=== PATIENT | female | born 1985 | race Caucasian/White ===

== ENCOUNTER 2017-12-06 19:17 | Emergency (ER) | payer MEDICAID ==
[~2017-12-06 19:17] MED LIST: ALBU8.5H8 IH; IRON PO; MEGE400O2 PO; VITC500T PO
== END 2017-12-06 20:01 | disposition left against medical advice (07) ==
LOC: ER 19:17
DX: R06.02 Shortness of breath (principal); Z53.21 Procedure and treatment not carried out due to patient leaving prior to being seen by health care provider

== ENCOUNTER 2020-07-16 15:11 | Emergency (ER) | payer MEDICAID ==
[~2020-07-16] VITALS: Ht 180.3 cm; Wt 142.3 kg
[~2020-07-16 15:11] MED LIST changes: -MEGE400O2 PO; +MEGE400O6 PO
[2020-07-16 15:48] LABS: BASOPHILS # (AUTO) 0.1 X10'3 (0-0.2); BASOPHILS % (AUTO) 0.6 % (0-1); EOSINOPHILS # (AUTO) 0.6 X10'3 (0-0.9); EOSINOPHILS % (AUTO) 4.8 % (0-6); HEMATOCRIT 37.5 % (35.0-45.0); HEMOGLOBIN 12.3 g/dl (12.0-16.0); LYMPHOCYTES % (AUTO) 22.3 % (21-51); MEAN CORPUSCULAR HEMOGLOBIN 27.9 PG (27.0-31.0); MEAN CORPUSCULAR HGB CONC 32.8 g/dL (33.0-36.5); MEAN CORPUSCULAR VOLUME 85.2 FL (78-98); MEAN PLATELET VOLUME 7.4 FL (7.4-10.4); MONOCYTES # (AUTO) 0.4 X10'3 (0-0.9); MONOCYTES % (AUTO) 3.2 % (2-12); NEUTROPHILS # (AUTO) 9.2 X10'3 (1.8-7.7); NEUTROPHILS % (AUTO) 69.1 % (42-75); PLATELET COUNT 397 X10'3 (140-440); RED CELL DISTRIBUTION WIDTH 15.1 % (11.5-14.5); WHITE BLOOD COUNT 13.3 X10'3 (4.5-11.0)
[2020-07-16 16:08] LABS: ALANINE AMINOTRANSFERASE 20 U/L (12-78); ALBUMIN 3.5 G/DL (3.4-5.0); ALBUMIN/GLOBULIN RATIO 0.9 (1.1-1.5); ALKALINE PHOSPHATASE 71 IU/L (46-116); ANION GAP 11 (8-16); ASPARTATE AMINO TRANSFERASE 10 U/L (10-37); BILIRUBIN,TOTAL 0.4 MG/DL (0.1-1.0); BLOOD UREA NITROGEN 9 MG/DL (7-18); BUN/CREATININE RATIO 11.8 (6.6-38.0); CALCIUM 9.2 MG/DL (8.5-10.1); CHLORIDE 106 MMOL/L (99-107); CREATININE 0.76 MG/DL (0.40-0.90); GLUCOSE 129 MG/DL (70-104); POTASSIUM 3.4 MMOL/L (3.5-5.1); SODIUM 140 MMOL/L (135-145); TOTAL PROTEIN 7.5 G/DL (6.4-8.2); eGFR 86 ML/MIN
[2020-07-16 17:26] VITALS: BP 116/67
== END 2020-07-16 17:34 | disposition home or self-care (01) ==
LOC: ER 15:11
DX: R07.89 Other chest pain (principal); J45.909 Unspecified asthma, uncomplicated; Z98.891 History of uterine scar from previous surgery; Z90.49 Acquired absence of other specified parts of digestive tract; Z79.899 Other long term (current) drug therapy
CPT/HCPCS: 36415; 71045; 80053; 83880; 84484; 85025; 93005; 99285

== ENCOUNTER 2023-06-29 21:22 | Emergency (ER) | payer BC, MEDICAID ==
[~2023-06-29] VITALS: Ht 175.3 cm; Wt 136.1 kg
[~2023-06-29 21:22] MED LIST changes: +ALBU8.5H17 IH; -ALBU8.5H8 IH; -MEGE400O6 PO; +MEGE400O7 PO
[2023-06-29 21:44] LABS: BASOPHILS # (AUTO) 0.1 X10'3 (0-0.2); BASOPHILS % (AUTO) 0.5 % (0-1); EOSINOPHILS # (AUTO) 0.7 X10'3 (0-0.9); EOSINOPHILS % (AUTO) 2.6 % (0-6); HEMATOCRIT 37.4 % (35.0-45.0); HEMOGLOBIN 12.6 g/dl (12.0-16.0); LYMPHOCYTES # (AUTO) 6.1 X10'3 (1.1-4.8); LYMPHOCYTES % (AUTO) 24.5 % (21-51); MEAN CORPUSCULAR HEMOGLOBIN 28.6 PG (27.0-31.0); MEAN CORPUSCULAR HGB CONC 33.6 g/dL (33.0-36.5); MEAN CORPUSCULAR VOLUME 85.1 FL (78-98); MEAN PLATELET VOLUME 7.1 FL (7.4-10.4); MONOCYTES # (AUTO) 0.9 X10'3 (0-0.9); MONOCYTES % (AUTO) 3.5 % (2-12); NEUTROPHILS % (AUTO) 68.9 % (42-75); PLATELET COUNT 461 X10'3 (140-440); RED CELL DISTRIBUTION WIDTH 14.1 % (11.5-14.5); WHITE BLOOD COUNT 24.7 X10'3 (4.5-11.0)
[2023-06-29 22:06] LABS: ALBUMIN 3.4 G/DL (3.4-5.0); ANION GAP 10 (8-16); BLOOD UREA NITROGEN 9 MG/DL (7-18); CALCIUM 8.7 MG/DL (8.5-10.1); CHLORIDE 103 MMOL/L (99-107); CREATININE 0.82 MG/DL (0.40-0.90); GLUCOSE 150 MG/DL (70-104); POTASSIUM 3.5 MMOL/L (3.5-5.1); PRO BRAIN NATRIURETIC PEPTIDE < 30 PG/ML (0-125); SODIUM 138 MMOL/L (135-145); TOTAL CARBON DIOXIDE 25.2 MMOL/L (24-32); eCRCL 96 ML/MIN; eGFR 78 ML/MIN
[2023-06-29] MEDS: aspirin 81mg tab.chew PO ONE (22:22)
[2023-06-29] MEDS ORDERED: iohexol 350MG/ML 100ml bottle IV ONE (22:49)
[2023-06-29] MEDS: normal saline 1000ML IV soln IVB ONE (23:12)
[2023-06-29] MEDS: diphenhydrAMINE 50 mg/ml inj IV ONE (23:37)
[2023-06-29] MEDS: epiNEPHrine 1 mg/ml inj SQ ONE (23:37)
[2023-06-29] MEDS: methylPREDNISolone sod succ 125mg/2ml vial IV ONE (23:40)
[2023-06-29] MEDS: famotidine/PF 10 mg/ml inj IV ONE (23:41)
[2023-06-29] MEDS: normal saline 1000ML IV soln IVB STA (23:42)
[2023-06-29] MEDS: epiNEPHrine 1 mg/ml inj ONE (23:43)
[2023-06-29] MEDS: diphenhydrAMINE 50 mg/ml inj ONE (23:51)
[2023-06-30 00:02] VITALS: PULSE 107; RESP 18; O2SAT 97
[2023-06-30] MEDS: ipratropium/albuterol 3ml nebule NEB ONE (00:02)
[2023-06-30 00:09] VITALS: PULSE 97; RESP 16; O2SAT 100
[2023-06-30 02:16] VITALS: BP 113/64; PULSE 89; RESP 18; TEMP 98.6; O2SAT 98
== END 2023-06-30 02:48 | disposition home or self-care (01) ==
LOC: ER 21:23
DX: R10.9 Unspecified abdominal pain (principal); F41.9 Anxiety disorder, unspecified; Z88.6 Allergy status to analgesic agent; Z88.5 Allergy status to narcotic agent; Z79.899 Other long term (current) drug therapy
CPT/HCPCS: 36415; 71045; 71275; 74177; 80048; 83735; 83880; 84145; 84484; 85025; 85379; 93005; 94640; 96361; 96372; 96374; 96375; 99285; J0171; J1200; J2930; J3490; J7030; Q9967; 94760

== ENCOUNTER 2024-04-12 12:00 | Day surgery (SDC) | payer MEDICAID ==
[2024-04-11 11:13] LABS: BASOPHILS # (AUTO) 0.1 X10'3 (0-0.2); BASOPHILS % (AUTO) 0.5 % (0-1); EOSINOPHILS # (AUTO) 0.3 X10'3 (0-0.9); EOSINOPHILS % (AUTO) 1.8 % (0-6); HEMATOCRIT 38.8 % (35.0-45.0); HEMOGLOBIN 12.8 g/dl (12.0-16.0); LYMPHOCYTES # (AUTO) 3.5 X10'3 (1.1-4.8); LYMPHOCYTES % (AUTO) 19.7 % (21-51); MEAN CORPUSCULAR HEMOGLOBIN 27.2 PG (27.0-31.0); MEAN CORPUSCULAR VOLUME 82.4 FL (78-98); MEAN PLATELET VOLUME 7.4 FL (7.4-10.4); MONOCYTES # (AUTO) 0.5 X10'3 (0-0.9); MONOCYTES % (AUTO) 2.9 % (2-12); NEUTROPHILS # (AUTO) 13.5 X10'3 (1.8-7.7); NEUTROPHILS % (AUTO) 75.1 % (42-75); PLATELET COUNT 460 X10'3 (140-440); RED BLOOD COUNT 4.71 X10'6 (4.20-5.60)
[2024-04-11 11:20] LABS: PREOP HCG, QL SERUM NEGATIVE (NEGATIVE)
[2024-04-11 11:22] LABS: ALANINE AMINOTRANSFERASE 23 U/L (12-78); ALBUMIN 3.6 G/DL (3.4-5.0); ALBUMIN/GLOBULIN RATIO 0.8 (1.1-1.5); ALKALINE PHOSPHATASE 71 IU/L (46-116); ANION GAP 10 (8-16); ASPARTATE AMINO TRANSFERASE 9 U/L (10-37); BILIRUBIN,TOTAL 0.6 MG/DL (0.1-1.0); BLOOD UREA NITROGEN 11 MG/DL (7-18); BUN/CREATININE RATIO 14.5 (10.0-20.0); CALCIUM 8.9 MG/DL (8.5-10.1); CHLORIDE 104 MMOL/L (99-107); CREATININE 0.76 MG/DL (0.40-0.90); GLUCOSE 92 MG/DL (70-104); SODIUM 140 MMOL/L (135-145); TOTAL CARBON DIOXIDE 25.6 MMOL/L (24-32); TOTAL PROTEIN 8.1 G/DL (6.4-8.2); eGFR 84 ML/MIN
[~2024-04-12] VITALS: Ht 177.8 cm; Wt 134.9 kg
[2024-04-12] VITALS (7 sets, daily range): BP systolic 133–152; BP diastolic 71–99; PULSE 83–102; RESP 14–16; TEMP 97.7; O2SAT 95–100
[~2024-04-12 12:00] MED LIST changes: +ALBU18HF2 INH; -ALBU8.5H17 IH; +FLUT1DIS20 INH; -IRON PO; -MEGE400O7 PO; +SEMA0.5P SUBCUT; -VITC500T PO
[2024-04-12] MEDS: famotidine 20mg tablet PO ONE (12:47)
[2024-04-12] MEDS: ringers solution, lacted 1,000 ML IV SCH (12:47)
[2024-04-12] MEDS: CEFAZOLIN 3GM/DEXTROSE 150mL 150 ML IV ONE (12:47)
[2024-04-12] MEDS ORDERED: ringers solution, lacted 1,000 ML IV SCH (13:35)
[2024-04-12] MEDS ORDERED: proCHLORperazine 10 MG/2 ml inj IV PRN (13:35)
[2024-04-12] MEDS ORDERED: morphine 2 MG/ML inj. syringe IV PRN (13:35)
[2024-04-12] MEDS ORDERED: morphine 4 MG/ML inj SYRINge IV PRN (13:35)
[2024-04-12] MEDS ORDERED: meperidine/PF 25mg/ml syringe IV PRN ×3 (13:35)
[2024-04-12] MEDS ORDERED: BUPIVAcaine 2.5mg/ml inj 50ml vial (contains preservative) ONE ×2 (14:14→14:42)
[2024-04-12] MEDS ORDERED: BUPIVACAINE liposomal/PF 13.3 MG/ML 10mL vial IM ONE (14:14)
[2024-04-12] MEDS ORDERED: sevoflurane 250ml liquid IH ONE (14:37)
[2024-04-12] MEDS ORDERED: fentaNYL/PF 50MCG/1 ML 2ML syringe ONE (14:39)
[2024-04-12] MEDS ORDERED: propofol inj 20 ML IV ONE (14:40)
[2024-04-12] MEDS ORDERED: midazolam 1 mg/ML 2ml injection ONE (14:40)
[2024-04-12] MEDS ORDERED: rocuronium 10mg/ml inj IV ONE (14:41)
[2024-04-12] MEDS ORDERED: LIDOcaine 1% 30ml preserv. free vial ONE (14:42)
[2024-04-12] MEDS ORDERED: dexamethasone sod phosphate 4mg/ml inj. ONE (15:05)
[2024-04-12] MEDS ORDERED: ondansetron/PF 4mg/2ml inj ONE (15:40)
[2024-04-12] MEDS ORDERED: sugammadex 200mg/2ml injection IV ONE (16:11)
[2024-04-12] MEDS: oxyCODONE/APAP 5-325mg tablet PO PRN (17:10)
[2024-04-12] MEDS: ondansetron/PF 4mg/2ml inj IV PRN (17:21)
== END 2024-04-12 17:25 | disposition home or self-care (01) ==
LOC: PAS 12:00
PROVIDERS: ATTEND Surgery
DX: K42.9 Umbilical hernia without obstruction or gangrene (principal); R19.03 Right lower quadrant abdominal swelling, mass and lump; N80.C10 Endometriosis of the anterior abdominal wall, subcutaneous tissue; J45.909 Unspecified asthma, uncomplicated; E66.01 Morbid (severe) obesity due to excess calories; Z88.3 Allergy status to other anti-infective agents; Z91.041 Radiographic dye allergy status; Z98.891 History of uterine scar from previous surgery; Z90.49 Acquired absence of other specified parts of digestive tract; Z98.890 Other specified postprocedural states; Z80.1 Family history of malignant neoplasm of trachea, bronchus and lung; Z79.899 Other long term (current) drug therapy
CPT/HCPCS: 22900; 36415; 49591; 80053; 82948; 84703; 85025; C1781; J0666; J1100; J2003; J2250; J2405; J2704; J3010; J3490; J7030; J7120; Z7506; Z7508; Z7512; A4215; A4618